=== PATIENT | male | born 1980 | race Caucasian/White ===

== ENCOUNTER 2021-04-05 22:23 | Emergency (ER) | payer SELFPAY ==
[~2021-04-05] VITALS: Ht 177.8 cm; Wt 75.0 kg
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
[2021-04-05 23:28] LABS: BASO % 1 % (0-3); EOS # 0.3 x10^3/uL (0.0-0.7); EOS % 5 % (0-3); HEMATOCRIT 36.8 % (39.0-53.0); HEMOGLOBIN 12.3 g/dL (13.0-17.5); LYMPH # 1.5 x10^3/uL (1.0-4.8); LYMPH % 27 % (24-48); MEAN CORPUSCULAR HEMOGLOBIN 31 pg (25-35); MEAN CORPUSCULAR HGB CONC 33 g/dL (31-37); MEAN CORPUSCULAR VOLUME 92 fL (79-100); MONO # 0.5 x10^3/uL (0.0-1.1); MONO % 9 % (0-9); NEUT # 3.4 x10^3/uL (1.8-7.7); NEUT % 59 % (31-73); PLATELET COUNT 226 x10^3/uL (140-400); RED BLOOD COUNT 4.01 x10^6/uL (4.30-5.70); RED CELL DISTRIBUTION WIDTH 13.7 % (11.5-14.5); WHITE BLOOD COUNT 5.7 x10^3/uL (4.0-11.0)
[2021-04-05 23:36] LABS: CALCIUM 8.5 mg/dL (8.5-10.1); CREATININE 0.9 mg/dL (0.7-1.3); GFR 92.5; POTASSIUM 3.8 mmol/L (3.5-5.1)
[2021-04-05 23:42] LABS: ALBUMIN 3.4 g/dL (3.4-5.0); ALBUMIN/GLOBULIN RATIO 0.9 (1.0-1.7); TOTAL BILIRUBIN 0.6 mg/dL (0.2-1.0)
[2021-04-05 23:58] VITALS: BP 121/74
--- NOTE | 2021-04-06 00:58 | RAD ---
EXAM: XR SHOULDER_LEFT 2+ VIEWS 04/06/2021 12:41 AM CLINICAL INDICATION: Pain, limited range of motion COMPARISON: None TECHNIQUE: 3 views of the left shoulder FINDINGS: No acute fracture. Alignment is normal. There is mild acromioclavicular degenerative joint disease. The glenohumeral joint is maintained. Subacromial space is preserved. Possible os acromiale . There is partially visualized cervical fusion hardware. IMPRESSION: 1. No acute osseous abnormality. 2. 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 Electronically signed by: Gali Armstrong MD (04/06/2021 12:56 AM) [id number]
== END 2021-04-06 01:14 | disposition home or self-care (01) ==
LOC: ER 22:23
DX: M62.838 Other muscle spasm (principal); M25.512 Pain in left shoulder; F17.200 Nicotine dependence, unspecified, uncomplicated
CPT/HCPCS: 36415; 73030; 80053; 82550; 85025; 99284